=== PATIENT | female | born 1940 | race African-American/Black ===

== ENCOUNTER 2025-03-27 09:05 | Emergency (ER) | payer OTHER ==
[~2025-03-27] VITALS: Ht 152.4 cm; Wt 49.0 kg
[2025-03-27 09:16] VITALS: O2SAT 99
[2025-03-27 10:19] LABS: BASOPHILS % 0.3 % (0.0-2.0); EOSINOPHILS % 2.6 % (0.0-5.0); HEMATOCRIT. 35.2 % (36.0-48.0); HEMOGLOBIN. 11.3 g/dL (12.0-16.0); LYMPHOCYTES % 29.6 % (20.0-50.0); MEAN CORPUSCULAR HEMOGLOBIN 28.3 pg (28.0-32.0); MEAN CORPUSCULAR HGB CONC 32.2 g/dL (31.0-37.0); MEAN CORPUSCULAR VOLUME 87.9 fL (81.0-99.0); MEAN PLATELET VOLUME 8.6 fl (7.4-10.4); MONOCYTES % 7.5 % (2.0-8.0); PLATELET 155 x1000/uL (130-400); RED CELL DISTRIBUTION WIDTH 14.1 % (11.6-14.6); WHITE BLOOD COUNT 5.5 x1000/uL (4.5-11.0)
[2025-03-27 10:45] LABS: CHLORIDE 107 mEq/L (98-107); POTASSIUM 3.6 mEq/L (3.5-5.1); SODIUM 141 mEq/L (136-145)
[2025-03-27 10:46] LABS: CALCIUM 10.4 mg/dL (8.7-10.4); CARBON DIOXIDE 25 mEq/L (21-32)
[2025-03-27 10:51] LABS: CREATININE 1.2 mg/dL (0.6-1.0); GLUCOSE 88 mg/dL (70-105); UREA NITROGEN BLOOD 30 mg/dL (9-23)
[2025-03-27 10:53] LABS: ALANINE AMINOTRANSFERASE 25 IU/L (10-49); ALBUMIN 4.3 g/dL (3.2-4.8); ASPARTATE AMINOTRANSFERASE 33 IU/L (<34); BILIRUBIN TOTAL 0.5 mg/dL (0.1-1.0); PROTEIN TOTAL 7.8 g/dL (6.0-8.3)
[2025-03-27 11:45] VITALS: BP 147/85; PULSE 74; RESP 14; TEMP 36.8; O2SAT 99
== END 2025-03-27 11:45 | disposition home or self-care (01) ==
LOC: ER 09:05
DX: A08.4 Viral intestinal infection, unspecified (principal); N17.9 Acute kidney failure, unspecified; I10 Essential (primary) hypertension; E78.00 Pure hypercholesterolemia, unspecified; Z90.710 Acquired absence of both cervix and uterus; Z79.899 Other long term (current) drug therapy
CPT/HCPCS: 36415; 80053; 85025; 99283

== ENCOUNTER 2025-10-02 04:12 | Inpatient (IN) | payer MEDICARE, OTHER ==
[2025-10-02] VITALS (7 sets, daily range): BP systolic 132–177; BP diastolic 78–113; PULSE 77–88; RESP 18; TEMP 36.2–36.8; O2SAT 93–98
[~2025-10-02] VITALS: Ht 152.4 cm; Wt 40.8 kg
[~2025-10-02 04:12] MED LIST: AMLO5TAB88 PO; ASPI-1406 PO; FURO-151 MT; ISOS30TA91 PO; LIP40 PO; METO-385 PO
[2025-10-02 05:34] LABS: BASOPHILS % 1.4 % (0.0-2.0); EOSINOPHILS % 0.6 % (0.0-5.0); HEMATOCRIT. 35.3 % (36.0-48.0); HEMOGLOBIN. 11.5 g/dL (12.0-16.0); LYMPHOCYTES % 9.4 % (20.0-50.0); MEAN PLATELET VOLUME 10.7 fl (7.4-10.4); MONOCYTES % 6.4 % (2.0-8.0); NEUTROPHILS % 82.2 % (40.0-76.0); PLATELET 135 x1000/uL (130-400); RED BLOOD CELL COUNT 3.90 mill/uL (4.2-5.4); RED CELL DISTRIBUTION WIDTH 16.6 % (11.6-14.6)
[2025-10-02 05:54] LABS: CREATININE 1.0 mg/dL (0.6-1.0)
[2025-10-02 05:55] LABS: UREA NITROGEN BLOOD 16 mg/dL (9-23)
[2025-10-02 06:01] LABS: TROPONIN I HIGH SENSITIVITY 70 ng/L (3.0-34)
[2025-10-02] MEDS: FUROSEMIDE 40MG/4ML VIAL IVP ONE (06:30)
[2025-10-02 08:09] LABS: TROPONIN I HIGH SENSITIVITY 74 ng/L (3.0-34)
[2025-10-02] MEDS ORDERED: ACETAMINOPHEN 325MG TABLET PO PRN ×2 (10:30)
[2025-10-02] MEDS ORDERED: ONDANSETRON HCL 4MG/2ML INJ IV PRN (10:30)
[2025-10-02] MEDS ORDERED: CLONIDINE 0.1MG TABLET PO PRN (10:30)
[2025-10-02] MEDS ORDERED: IPRATROPIUM/ALBUTEROL 0.5-3(2.5)MG/3ML NEB HHN PRN (10:30)
[2025-10-02] MEDS: FUROSEMIDE 20MG TABLET PO SCH (11:20)
[2025-10-02] MEDS: AMLODIPINE 5MG TABLET PO SCH (11:20)
[2025-10-02] MEDS: ASPIRIN 81MG TABLET PO SCH (11:20)
[2025-10-02] MEDS: LOSARTAN 50 MG TABLET PO SCH (11:20)
[2025-10-02] MEDS: GUAIFENESIN 200MG/10ML SUGAR FREE UDC PO PRN (11:20)
[2025-10-02] MEDS: FUROSEMIDE 40MG/4ML VIAL IVP NR (11:51)
[2025-10-02] MEDS: METOPROLOL SUCCINATE 50MG ER TABLET PO SCH (11:51)
[2025-10-02] MEDS: FUROSEMIDE 40MG/4ML VIAL IVP SCH (17:00)
[2025-10-02] MEDS: ENOXAPARIN 30MG/0.3ML SYR SUBCUT SCH (18:20)
[2025-10-02] MEDS: ATORVASTATIN CALCIUM 20MG TABLET PO SCH (20:12)
[2025-10-03] VITALS: BP 131/89; PULSE 79; RESP 20; TEMP 36.7; O2SAT 98
[2025-10-03 04:00] VITALS: BP 144/83; PULSE 73; RESP 18; TEMP 37; O2SAT 97
[2025-10-03 07:29] LABS: CREATININE 1.0 mg/dL (0.6-1.0); UREA NITROGEN BLOOD 11 mg/dL (9-23)
[2025-10-03 07:53] LABS: BASOPHILS % 0.8 % (0.0-2.0); EOSINOPHILS % 3.1 % (0.0-5.0); HEMATOCRIT. 38.6 % (36.0-48.0); HEMOGLOBIN. 12.2 g/dL (12.0-16.0); LYMPHOCYTES % 27.8 % (20.0-50.0); MEAN PLATELET VOLUME 10.3 fl (7.4-10.4); MONOCYTES % 9.1 % (2.0-8.0); NEUTROPHILS % 59.2 % (40.0-76.0); PLATELET 112 x1000/uL (130-400); RED BLOOD CELL COUNT 4.17 mill/uL (4.2-5.4); RED CELL DISTRIBUTION WIDTH 16.6 % (11.6-14.6)
[2025-10-03 08:00] VITALS: BP 144/93; PULSE 75; RESP 18; TEMP 36.5; O2SAT 99
[2025-10-03] MEDS: METOPROLOL SUCCINATE 50MG ER TABLET PO SCH (09:06)
[2025-10-03] MEDS: POTASSIUM CHLORIDE 20MEQ TABLET SR PO SCH (09:49)
[2025-10-03 12:00] VITALS: BP 135/91; PULSE 63; RESP 18; TEMP 36.6; O2SAT 97
[2025-10-03 16:00] VITALS: BP 129/91; PULSE 82; RESP 18; TEMP 36.6; O2SAT 99
[2025-10-03 20:00] VITALS: BP 138/59; PULSE 74; RESP 18; TEMP 36.6; O2SAT 99
[2025-10-03] MEDS: CARVEDILOL 6.25 MG TABLET PO SCH (21:20)
[2025-10-04] VITALS: BP 125/80; PULSE 76; RESP 17; TEMP 36.5; O2SAT 99
[2025-10-04 04:00] VITALS: BP 132/94; PULSE 75; RESP 18; TEMP 36.4; O2SAT 99
[2025-10-04 08:00] VITALS: BP 136/93; PULSE 70; RESP 18; TEMP 36.7; O2SAT 97
[2025-10-04 11:25] VITALS: BP 169/89; PULSE 70; RESP 18; TEMP 98.1
== END 2025-10-04 13:35 | disposition home or self-care (01) | DRG 280 ==
LOC: ER 04:12 → 4WST 06:33 → EDBEDREQ 06:34 → EDBEDREQTM 06:34 → UNDOADMIN 06:40 → 8WST 06:40 → 4WST 06:40
PROVIDERS: ADMIT Internal Medicine; ATTEND Internal Medicine
DX: I11.0 Hypertensive heart disease with heart failure (principal); I50.23 Acute on chronic systolic (congestive) heart failure; I21.A1 Myocardial infarction type 2; Z90.710 Acquired absence of both cervix and uterus; E78.00 Pure hypercholesterolemia, unspecified; I25.10 Atherosclerotic heart disease of native coronary artery without angina pectoris; Z79.899 Other long term (current) drug therapy
CPT/HCPCS: 36415; 71045; 80048; 84484; 85025; 93005; 96374; 99291; A4606; G0378; J1650; J1938